=== PATIENT | male | born 2000 | race Caucasian/White ===

== ENCOUNTER 2021-01-04 15:43 | Emergency (ER) | payer OTHER ==
[~2021-01-04] VITALS: Ht 177.8 cm; Wt 68.2 kg
[2021-01-04] MEDS ORDERED: HYDROCODONE/ACETAMINOPHEN 5-325 MG TABLET PO ONE (18:45)
[2021-01-04] MEDS ORDERED: IBUPROFEN 800 MG TABLET PO ONE (18:45)
[2021-01-04 18:49] VITALS: BP 130/94
== END 2021-01-04 19:04 | disposition home or self-care (01) ==
LOC: EMS 15:45
DX: S83.91XA Sprain of unspecified site of right knee, initial encounter (principal); Z91.010 Allergy to peanuts; W10.9XXA Fall (on) (from) unspecified stairs and steps, initial encounter; Y93.01 Activity, walking, marching and hiking; Y92.89 Other specified places as the place of occurrence of the external cause; Y99.8 Other external cause status
CPT/HCPCS: 29505; 99283

== ENCOUNTER 2023-08-18 13:51 | Inpatient (IN) | payer MEDICAID, OTHER ==
[~2023-08-18] VITALS: Ht 170.2 cm; Wt 71.2 kg
[2023-08-18 14:45] LABS: BASOPHILS % (AUTO) 0.9 % (0.0-2.0); EOSINOPHILS % (AUTO) 8.1 % (1.0-6.0); HEMATOCRIT 45.1 % (41-53); HEMOGLOBIN 15.4 g/dL (13.5-17.5); LYMPHOCYTES # (AUTO) 2.4 K/uL (1.0-4.8); LYMPHOCYTES % (AUTO) 35.7 % (22.0-44.0); MEAN CORPUSCULAR HEMOGLOBIN 32.1 pg (26.0-34.0); MEAN CORPUSCULAR HGB CONC 34.1 G/dL (31.0-37.0); MEAN CORPUSCULAR VOLUME 94 fL (80-100); MONOCYTES # (AUTO) 0.4 K/uL (0.1-1.0); MONOCYTES % (AUTO) 6.2 % (2.0-9.0); NEUTROPHILS # (AUTO) 3.4 K/uL (1.8-7.7); NEUTROPHILS % (AUTO) 49.1 % (40.0-70.0); PLATELET COUNT (AUTO) 270 K/uL (150-450); RED BLOOD CELL COUNT(AUTO) 4.79 MIL/uL (4.50-5.90); RED CELL DISTRIBUTION WIDTH 12.9 % (11.5-14.5); WHITE BLOOD COUNT (AUTO) 6.9 K/uL (4.5-11.0)
[2023-08-18 14:56] LABS: COVID AG,FIA SOURCE NASAL SWAB
[2023-08-18 15:07] LABS: ALCOHOL, BLOOD (SERUM) < 3 mg/dL (0-10)
[2023-08-18 15:17] LABS: SARS-COV2 (COVID) ANTIGEN,FIA Negative (Negative)
[2023-08-18 15:21] LABS: PH,URINE DRUG SCREEN 7.5 (5.0-8.0)
[2023-08-18 15:26] LABS: ANION GAP 10 mmol/L (8-16); CALCIUM, TOTAL 9.7 mg/dL (8.8-10.5); CARBON DIOXIDE 28 mmol/L (22-29); CHLORIDE 103 mmol/L (98-107); CREATININE 0.92 mg/dL (0.60-1.30); GLOMERULAR FILTR. RATE CALC > 60 mL/min (>60); GLUCOSE,RANDOM 86 mg/dL (70-110); POTASSIUM 3.6 mmol/L (3.5-5.1); SODIUM SERUM 141 mmol/L (136-145); UREA NITROGEN, BLOOD 10 mg/dL (7-18)
[2023-08-18 15:28] LABS: ALCOHOL, URINE DRUG SCREEN NEGATIVE (NEGATIVE); AMPHET/METH SCREEN,URINE NEGATIVE (NEGATIVE); BARBITURATE SCREEN, URINE NEGATIVE (NEGATIVE); BENZODIAZEPINES SCREEN,URINE NEGATIVE (NEGATIVE); CANNABINOID SCREEN,URINE POSITIVE (NEGATIVE); COCAINE SCREEN,URINE NEGATIVE (NEGATIVE); METHADONE SCREEN, URINE NEGATIVE (NEGATIVE); OPIATE SCREEN,URINE NEGATIVE (NEGATIVE); PHENCYCLIDINE SCREEN,URINE NEGATIVE (NEGATIVE)
[2023-08-18 15:38] LABS: ALANINE AMINOTRANSFERASE 31 U/L (12-78); ALBUMIN 4.6 g/dL (3.4-5.0); ALKALINE PHOSPHATASE 72 U/L (46-116); ASPARTATE AMINOTRANSFERASE 18 U/L (15-37); BILIRUBIN,TOTAL 0.5 mg/dL (0.1-1.0); TOTAL PROTEIN, SERUM 8.1 g/dL (6.4-8.2)
[2023-08-18] MEDS: LORazepam 2 MG TABLET PO ONE (17:38)
[2023-08-18] MEDS: DiphenhydrAMINE HCL 25 MG CAPSULE PO ONE (17:38)
[2023-08-18] MEDS: LITHIUM CARBONATE 300 MG ER TABLET PO ONE (18:59)
[2023-08-18] MEDS ORDERED: HALOPERIDOL 5 MG TABLET PO PRN (20:00)
[2023-08-18] MEDS ORDERED: ZOLPIDEM TARTRATE 10 MG TABLET PO PRN (20:00)
[2023-08-18] MEDS ORDERED: LORazepam 2 MG TABLET PO PRN (20:00)
[2023-08-18 22:17] VITALS: BP 100/60; PULSE 65; RESP 18; TEMP 97
[2023-08-19] MEDS ORDERED: CloNIDine HCL 0.1 MG TABLET PO PRN (05:15)
[2023-08-19] MEDS ORDERED: ALBUTEROL SULFATE HFA 90 MCG/PUFF 8 GM INHALER IH PRN (05:15)
[2023-08-19] MEDS ORDERED: BACITRACIN 28 GM OINTMENT TP PRN (05:15)
[2023-08-19] MEDS ORDERED: LOPERAMIDE HCL 2 MG CAPSULE PO PRN (05:15)
[2023-08-19] MEDS ORDERED: MAGNESIUM HYDROXIDE SUSPENSION 30 ML UDCUP PO PRN (05:15)
[2023-08-19] MEDS ORDERED: BENZOCAINE/MENTHOL LOZENGE PO PRN (05:15)
[2023-08-19] MEDS ORDERED: ONDANSETRON HCL 4 MG TABLET PO PRN (05:15)
[2023-08-19] MEDS ORDERED: IBUPROFEN 600 MG TABLET PO PRN (05:15)
[2023-08-19] MEDS ORDERED: DOCUSATE SODIUM 100 MG CAPSULE PO PRN (05:15)
[2023-08-19] MEDS ORDERED: MAG HYDROX/ALUMINUM HYD/SIMETH ES 30 ML SUSPENSION UDCUP PO PRN (05:15)
[2023-08-19] MEDS ORDERED: OMEPRAZOLE 20 MG CAPSULE PO PRN (05:15)
[2023-08-19] MEDS ORDERED: PETROLATUM,WHITE 28 GM JELLY TP PRN (05:15)
[2023-08-19] MEDS ORDERED: ACETAMINOPHEN 325 MG TABLET PO PRN (05:15)
[2023-08-19 08:20] VITALS: BP 112/62; PULSE 79; RESP 16; TEMP 97.5; O2SAT 100
[2023-08-19 23:11] VITALS: BP 93/58; PULSE 63; RESP 18; TEMP 97.6; O2SAT 98
[2023-08-19 23:35] VITALS: BP 93/58; PULSE 63; RESP 18; TEMP 97.6; O2SAT 98
[2023-08-20 08:30] VITALS: BP 101/61; PULSE 64; RESP 18; TEMP 98.2; O2SAT 98
[2023-08-20] MEDS: LITHIUM CARBONATE 300 MG CAPSULE PO SCH (17:17)
[2023-08-20 20:50] VITALS: BP 141/81; PULSE 98; RESP 18; TEMP 97.6; O2SAT 99
[2023-08-21 08:22] VITALS: BP 124/72; PULSE 70; RESP 18; TEMP 98; O2SAT 98
[2023-08-21 20:00] VITALS: BP 116/62; PULSE 75; RESP 18; TEMP 98; O2SAT 99
[2023-08-22 08:30] VITALS: BP 106/68; PULSE 82; RESP 17; TEMP 98; O2SAT 98
[2023-08-22 20:40] VITALS: BP 109/77; PULSE 75; RESP 19; TEMP 97.4; O2SAT 98
[2023-08-23 08:31] VITALS: BP 112/75; PULSE 70; RESP 17; TEMP 97.8; O2SAT 99
[2023-08-23] MEDS ORDERED: LITH300C3 PO (11:53)
== END 2023-08-23 13:32 | disposition home or self-care (01) | DRG 750 ==
LOC: EMS 13:51 → B2S 18:48
PROVIDERS: ADMIT Psychiatry & Neurology Psychiatry; ATTEND Psychiatry & Neurology Psychiatry
DX: F25.9 Schizoaffective disorder, unspecified (principal); R45.851 Suicidal ideations; F31.9 Bipolar disorder, unspecified; F41.9 Anxiety disorder, unspecified; G47.00 Insomnia, unspecified; K59.00 Constipation, unspecified; Z20.822 Contact with and (suspected) exposure to COVID-19; F90.9 Attention-deficit hyperactivity disorder, unspecified type; Z91.010 Allergy to peanuts
CPT/HCPCS: 80053; 80178; 80307; 85025; 99285; G0480